=== PATIENT | female | born 1945 | race Caucasian/White ===

== ENCOUNTER 2019-06-26 12:26 | Inpatient (IN) ==
[2019-06-26] MEDS: ASPIRIN PO ONE ×2 (12:52→13:14)
--- NOTE | 2019-06-26 13:08 | EKG Report ---
Test Performed on : 06/26/2019 12:36:56 PM Test Reason : CP Blood Pressure : / mmHG Vent. Rate : 052 BPM Atrial Rate : 052 BPM P-R Int : 154 ms QRS Dur : 086 ms QT Int : 434 ms P-R-T Axes : 024 010 068 degrees QTc Int : 403 ms Sinus bradycardia. Nonspecific T wave abnormality Abnormal ECG When compared with ECG of 08-JUN-2012 14:09, No significant change was found Unconfirmed Result
[2019-06-26] MEDS ORDERED: ASPIRIN PO ONE (13:17)
--- NOTE | 2019-06-26 13:29 | PROVIDER DOCUMENTATION ---
HPI-Chest Pain - General Chief Complaint: Chest Pain Stated Complaint: CP,DIZZINESS,JAW PAIN,NAUSEA Time Seen by Provider: 06/26/19 12:52 Source: patient Allergies/Adverse Reactions: Patient Allergies Allergy/AdvReac Type Severity Reaction Status Date / Time levofloxacin [From Levaquin] Allergy RASH Verified 03/27/16 20:32 Home Medications: Home Medication List Medication Instructions Recorded Confirmed Last Taken Type Nitroglycerin Sl [Nitroglycerin] 0.4 mg SL DIRECTED PRN PRN 06/08/12 03/27/16 Unknown History Aspirin 81 mg PO DAILY 01/16/13 03/27/16 05/11/19 History Tramadol [Ultram] 50 mg PO PRN PRN 01/16/13 03/27/16 07/07/13 07:30 History Atorvastatin Calcium [Lipitor] 80 mg PO HS 03/27/16 03/27/16 05/10/19 History Benazepril HCl 20 mg PO DAILY 03/27/16 03/27/16 05/10/19 History Oxycodone/APAP 10 mg/325 mg 1 tab PO Q4H PRN PRN 03/27/16 03/27/16 Unknown History [Percocet-10] Potassium Chloride 20 meq PO BID 03/27/16 03/27/16 05/11/19 History - History of Present Illness-CP Nature of Presenting Problem: 73yof present to ER with c/o L shoulder/back pain and jaw pain onset this AM. Pt reports she also has had a lot of SOB, diaphoresis, and dizziness worse with movement or standing. States she felt like she was going to pass out this morning. Reports similiar but milder episode last week but resolved. 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 reports seeing him last in February or March and was supposed to go back after 4 months. Pt reports she has had a str ess test at the beginning of the year. Pt reports hx of CABG and stents. Location: reports: central, shoulder, back Chest Pain Radiation: reports: jaw Quality of Pain: reports: pressure, tightness Onset/Duration: this morning Timing: still present Modifying Factors: worse with: movement Associated Symptoms: reports: back pain, diaphoresis, dizziness, nausea, shortness of breath, syncope, vomiting. denies: fever/chills Nitro Today/Relief: 0.4 mg x 1, provided at home, no relief Aspirin Treatment Today: 81 mg x 1, provided at home Prior Chest Pain/Cardiac Workup: reports: stress test (this year) Review of Systems - Adult - REVIEW OF SYSTEMS - ADULT Constitutional: reports: no symptoms reported. denies: chills, fever Eyes: reports: no symptoms reported Ears, Nose, Mouth & Throat: reports: no symptoms reported Cardiovascular: reports: see HPI, chest pain, syncope Respiratory: reports: see HPI, shortness of breath. denies: cough Gastrointestinal: reports: see HPI, nausea, vomiting. denies: abdominal pain Genitourinary: reports: no symptoms reported Musculoskeletal: reports: see HPI, back pain Integumentary: reports: no symptoms reported Neurological: reports: see HPI, dizziness/vertigo, syncope. denies: headache/migraines, numbness, paresthesia, slurred speech Psychiatric: reports: no symptoms reported Endocrine: reports: no symptoms reported Hematologic/Lymphatic: reports: no symptoms reported Allergic/Immunologic: reports: no symptoms reported All Other Systems: Reviewed and Negative Past History - Adult - PAST MEDICAL HISTORY-ADULT Review of Records: reports: Old Records Reviewed, Nursing Assessment Review, Medications Reviewed, Social history reviewed & non-contributory. Major Childhood Illnesses: reports: denies history Cardiovascular: reports: CAD (open heart surgery and cardiac stents), HTN Respiratory: reports: denies history Gastrointestinal: reports: denies history Obstetrical/Gynecological: reports: denies history Genitourinary: reports: denies history Musculoskeletal: reports: denies history Neurological: reports: denies history Endocrine/Immune: reports: denies history Other Conditions: reports: denies history - PRIOR SURGERIES/PROCEDURES Surgical/Procedure History: reports: cardiac stent, hysterectomy, orthopedic (extremity) (right shoulder ), other (open heart; bladder) - PRIOR HOSPITALIZATIONS Prior Hospitalizations: reports: none - IMMUNIZATION STATUS Childhood Immunizations: See Nurse Assessment Flu Vaccine: See Nurse Assessment - FAMILY HISTORY Family History: reviewed, not pertinent Physical Exam-General - PHYSICAL EXAM-ADULT Initial Vital Signs Reviewed: Yes - CONSTITUTIONAL General Appearance: alert, no apparent distress - HEAD, EARS, NOSE, MOUTH & THROAT HENMT: moist mucous membranes - NECK Neck: full range of motion, supple, normal inspection - RESPIRATORY Respiratory: lungs clear, normal breath sounds, no respiratory distress, no accessory muscle use - CARDIOVASCULAR Cardiovascular: no edema, bradycardia - GASTROINTESTINAL (ABDOMEN) Abdominal Exam: normal bowel sounds, non tender, soft - LYMPHATIC Lymphatic: no adenopathy - MUSCULOSKELETAL Back Exam: normal inspection Extremity: normal range of motion, normal gait, normal inspection, no pedal edema, no calf tenderness, normal capillary refill - SKIN Integumentary: normal color, warm/dry. negative: diaphoresis, jaundice - NEUROLOGIC Neurologic: grossly normal - PSYCHIATRIC Psych/Mental Status: normal mood/affect, normal thought content, normal thought process, oriented x 3 - HEART Score HEART Score: History: Moderately Suspicious HEART Score: ECG: Normal HEART Score: Age: > or = 65 Years HEART Score: Risk Factors for Atherosclerotic Disease: 1 or 2 Risk Factors HEART Score: Troponin: < or = Normal Limit Total HEART Score:: 4 Progress - PLAN OF CARE/RESULTS Progress/Plan/Lab Results: Vital Signs - 8 hr 06/26/19 12:35 06/26/19 13:11 06/26/19 13:15 Temperature 97.4 F L Pulse Rate 51 L 59 L 52 L Respiratory Rate 16 16 19 Blood Pressure 107/67 O2 Sat by Pulse Oximetry 95 99 06/26/19 13:30 06/26/19 13:52 06/26/19 14:00 Temperature Pulse Rate 48 L 52 L 46 L Respiratory Rate 16 19 19 Blood Pressure O2 Sat by Pulse Oximetry 97 98 95 06/26/19 14:15 06/26/19 14:16 06/26/19 14:30 Temperature Pulse Rate 46 L 47 L 47 L Respiratory Rate 15 21 14 Blood Pressure 135/72 O2 Sat by Pulse Oximetry 98 97 97 Laboratory Results - last 24 hr 06/26/19 06/26/19 06/26/19 13:22 13:22 13:22 WBC 5.45 RBC 4.62 Hgb 13.9 Hct 43.0 MCV 93.1 MCH 30.1 MCHC 32.3 L RDW Std Deviation 14.9 H Plt Count 193 MPV 13.5 H Immature Gran % (Auto) 0.0 Neut % (Auto) 57.8 Lymph % (Auto) 34.5 [place] % (Auto) 5.5 Eos % (Auto) 1.8 Baso % (Auto) 0.4 Immature Gran # (Auto) 0.00 Neut # (Auto) 3.15 Lymph # (Auto) 1.88 [place] # (Auto) 0.30 Eos # (Auto) 0.10 Baso # (Auto) 0.02 PT INR PTT (Actin FS) D-Dimer, Quantitative Sodium 135 L Potassium 4.7 Chloride 101 Carbon Dioxide 23 L Anion Gap 11 BUN 16 Creatinine 1.0 H Estimated GFR/1.73 m2 55 BUN/Creatinine Ratio 16 Glucose 130 H Calculated Osmolality 273 Calcium 8.6 L Total Bilirubin 0.67 AST 25 ALT 15 Alkaline Phosphatase 94 Creatine Kinase 114 Troponin T < 0.010 Total Protein 7.7 Albumin 4.0 Globulin 3.7 Albumin/Globulin Ratio 1.1 06/26/19 14:22 WBC RBC Hgb Hct MCV MCH MCHC RDW Std Deviation Plt Count MPV Immature Gran % (Auto) Neut % (Auto) Lymph % (Auto) [place] % (Auto) Eos % (Auto) Baso % (Auto) Immature Gran # (Auto) Neut # (Auto) Lymph # (Auto) [place] # (Auto) Eos # (Auto) Baso # (Auto) PT 13.2 INR 0.99 PTT (Actin FS) 26.9 D-Dimer, Quantitative 0.30 Sodium Potassium Chloride Carbon Dioxide Anion Gap BUN Creatinine Estimated GFR/1.73 m2 BUN/Creatinine Ratio Glucose Calculated Osmolality Calcium Total Bilirubin AST ALT Alkaline Phosphatase Creatine Kinase Troponin T Total Protein Albumin Globulin Albumin/Globulin Ratio Orders Category Date Time Status CHEST-2 VIEWS [RAD] Stat Exams 06/26/19 12:52 Completed CBC WITH DIFF [HEME] Stat Lab 06/26/19 13:22 Completed CK PROFILE [SP CHEM] Stat Lab 06/26/19 13:22 Completed COMPREHENSIVE METABOLIC PANEL [CHEM] Stat Lab 06/26/19 13:22 Completed D-DIMER [COAG] Stat Lab 06/26/19 14:22 Completed PROTIME WITH INR [COAG] Stat Lab 06/26/19 14:22 Completed PTT [COAG] Stat Lab 06/26/19 14:22 Completed TROPONIN T Stat Lab 06/26/19 13:22 Completed TROPONIN T Stat Lab 06/26/19 15:04 Ordered Aspirin Med 06/26/19 13:17 Discontinued 243 mg PO NOW ONE Aspirin Med 06/26/19 12:52 Discontinued 325 mg PO NOW ONE EKG [EKG] Stat Ther 06/26/19 12:52 Draft EKG [EKG] Stat Ther 06/26/19 15:04 Ordered Result Diagrams: 06/26/19 13:22 10/07/19 13:22 - XRAY 1 XRAY Study: Chest Impression: See EMR Report (FINDINGS: Stable CABG changes. Stable coronary stent. The lungs are clear. Heart size is normal. No pneumothorax or pleural effusion. IMPRESSION: Negative exam. Electronically signed by Ab Connor 06/26/2019 1:56 PM) - CONSULTS/PCP/HOSPITALIST Notification #1 *Consult/PCP/Hospitalist*: JIMBO Jeffrey hospitalist Time Discussed: 15:04 Consult Disposition: Will see in ED, Admit Departure - Departure Date of Disposition Decision: 06/26/19 Time of Disposition Decision: 15:04 DIAGNOSIS: Chest pain Qualifiers: Chest pain type: unspecified Qualified Code(s): R07.9 - Chest pain, unspecified Disposition: ADMITTED INPATIENT 09 Certified Medical Emergency: Emergent Condition: Stable Referrals and Follow-Ups: Jose Luis Cortez [Primary Care Provider] - - Critical Care Note This patient required my direct & personal management of CC.: No Attestation - Physician/ GIUSEPPE Attestation Patient care was provided by Advanced Practice Provider:: Yes Advanced Practice Provider:: Mary Singh Advanced Practice Provider documentation review:: The Mid-level provider documentation, treatment plan and medical decision making was reviewed by the physician who agrees with all treatment and medical decision making by the MLP. The physician spent face to face time with patient:: No Advanced Practice Provider documentation review:: Supervising physician onsite and consulted in the evaluation and care of this patient. The physician did not have a face to face encounter with the patient.
[2019-06-26 13:42] LABS: BASO# 0.02 X1000 (0.0-0.2); BASO% 0.4 % (0.0-0.8); EOS% 1.8 % (0.0-10.0); HEMOGLOBIN 13.9 g/dL (12.0-16.0); LYMPH# 1.88 X1000 (1.2-3.4); LYMPH% 34.5 % (20.5-51.1); MCH 30.1 PG (27-31); MCHC 32.3 g/dL (33-37); MCV 93.1 FL (81-99); MONO% 5.5 % (1.7-9.3); MPV 13.5 FL (7.4-10.4); NEUT# 3.15 X1000 (1.4-6.5); NEUT% 57.8 % (42.2-75.2); PLT 193 X1000 (130-400); RBC 4.62 XMIL (4.2-5.4); RDW 14.9 % (11.5-14.5); WBC 5.45 X1000 (4.8-10.8)
--- NOTE | 2019-06-26 13:59 | Diag Imaging Result Doc PS360 ---
CHEST-2 VIEWS - 06/26/2019 INDICATION: cp COMPARISON: 12/05/2018 FINDINGS: Stable CABG changes. Stable coronary stent. The lungs are clear. Heart size is normal. No pneumothorax or pleural effusion. IMPRESSION: Negative exam. Electronically signed by Ab Connor 06/26/2019 1:56 PM
--- NOTE | 2019-06-26 14:03 | ED EKG INTERP ---
This chart was entered by Ekaterina Michel Scribe, acting as scribe for Denzel Murphy MD. EKG Interpretation - EKG Time of EKG reading by physician:: 12:41 EKG Read and Signed by:: Denzel Murphy EKG Interpretation (*Must complete 3 of following elements*): Abnormal Rate: 52 Rhythm: sinus bradycardia QRS: normal ST Wave: non-specific ST changes Attestation - Physician/ GIUSEPPE Attestation Patient care was provided by Advanced Practice Provider:: No The physician spent face to face time with patient:: Yes Advanced Practice Provider documentation review:: Supervising physician onsite and consulted in the evaluation and care of this patient. The physician did have a face to face encounter with the patient. This chart was documented by the indicated scribe, (Ekaterina Michel Scribe) and accurately reflects the services I performed and decisions made by Jeffrey dawson Kent A., MD, as attested by the provider's signature.
[2019-06-26 14:18] LABS: ALB/GLOB RATIO 1.1; CALCIUM 8.6 mg/dL (8.8-10.2); POTASSIUM 4.7 mmol/L (3.5-5.1); TOTAL BILIRUBIN 0.67 mg/dL (0.20-1.00); TOTAL PROTEIN 7.7 g/dL (6.3-8.3)
[2019-06-26 14:38] LABS: INR 0.99; PROTIME 13.2 Seconds (11.0-16.0)
[2019-06-26 14:39] LABS: PTT 26.9 Seconds (22.3-41.8)
--- NOTE | 2019-06-26 16:13 | ED EKG INTERP ---
EKG Interpretation - EKG Time of EKG reading by physician:: 16:12 EKG Read and Signed by:: Denzel Murphy EKG Interpretation (*Must complete 3 of following elements*): Abnormal Rate: 47 Rhythm: sinus [place]annon [place]: normal QRS: poor R wave progression ID Interval: normal ST Wave: non-specific ST changes Prior EKG Comparison: unchanged from prior (except slower rate) Attestation - Physician/ GIUSEPPE Attestation Patient care was provided by Advanced Practice Provider:: Yes Advanced Practice Provider documentation review:: The Mid-level provider documentation, treatment plan and medical decision making was reviewed by the physician who agrees with all treatment and medical decision making by the MLP. The physician spent face to face time with patient:: No Advanced Practice Provider documentation review:: Supervising physician onsite and consulted in the evaluation and care of this patient. The physician did not have a face to face encounter with the patient.
--- NOTE | 2019-06-26 16:20 | EKG Report ---
Test Performed on : 06/26/2019 3:51:28 PM Test Reason : CP Blood Pressure : / mmHG Vent. Rate : 047 BPM Atrial Rate : 047 BPM P-R Int : 168 ms QRS Dur : 086 ms QT Int : 418 ms P-R-T Axes : 040 017 080 degrees QTc Int : 369 ms Sinus bradycardia. Nonspecific T wave abnormality Abnormal ECG When compared with ECG of 26-JUN-2019 12:36, (Unconfirmed) No significant change was found Unconfirmed Result
[2019-06-26] MEDS ORDERED: ZOFRAN IV PRN (16:27)
[2019-06-26] MEDS ORDERED: NITROGLYCERIN SL PRN (16:27)
[2019-06-26] MEDS ORDERED: TYLENOL PO PRN (16:27)
[2019-06-26] MEDS ORDERED: LOVENOX SUBQ SCH (16:30)
[2019-06-26] MEDS ORDERED: SODIUM CHLORIDE 0.9% INJ SCH (17:15)
[2019-06-26 17:20] LABS: HEMOGLOBIN A1C 5.6 % (4.8-6.0)
[2019-06-26] MEDS: PEPCID IV SCH (18:53)
[2019-06-26] MEDS ORDERED: FLU VACCINE IM ONE (20:13)
[2019-06-26] MEDS: PRILOSEC PO SCH (20:42)
--- NOTE | 2019-06-26 21:20 | EKG Report ---
Test Performed on : 06/26/2019 7:47:34 PM Test Reason : chest pain Blood Pressure : / mmHG Vent. Rate : 051 BPM Atrial Rate : 101 BPM P-R Int : 182 ms QRS Dur : 096 ms QT Int : 388 ms P-R-T Axes : 048 022 077 degrees QTc Int : 357 ms Sinus bradycardia. with 2nd degree AV block. with 2:1 AV conduction. Nonspecific T wave abnormality Abnormal ECG When compared with ECG of 26-JUN-2019 15:51, (Unconfirmed) Sinus rhythm. is now with 2nd degree AV block. Confirmed by Aniceto SHAVER, Galen Zuniga ([id number]) on 06/27/2019 7:43:06 AM
--- NOTE | 2019-06-26 22:43 | HISTORY AND PHYSICAL ---
CHIEF COMPLAINT: Jaw pain, left shoulder pain, shortness of breath, diaphoresis and dizziness of 6 hours duration. HISTORY OF PRESENT ILLNESS: Ms. Mooney is a 73-year-old lady with past medical history of coronary artery disease status post CABG and stenting around 2004, chronic GERD who presented to the emergency room with chief complaints of left shoulder and jaw pain onset this morning. Associated with that, she had nausea and clear vomiting. She also had shortness of breath and diaphoresis and dizziness. Her symptoms were worse on standing up position and were slightly better on lying down position. She had feelings as if she was going to pass out, so she decided to come to the hospital. Apparently, she had similar episode about 7 days ago, which had resolved. In the emergency room, the patient was found to be hemodynamically stable; however, considering her concerning symptoms, hospitalist team was consulted for further management. The patient states that she had had similar symptoms a few months ago, and she had seen her cook dinner in [place] who had performed a stress test, which was unremarkable and since then she was feeling better. She also states that at that time some medication changes were also made that she is not aware of. At the time of my evaluation, the patient states she is not having any more jaw pain. She is not feeling short of breath. She is not having any chest pain or shortness of breath; however, she is feeling better on lying down, but if she tries to sit up, she may throw up. She has had 1 vomiting so far since in the ER. She denies any headache, blurring of vision. She denies any abdominal pain, any burning micturition or any diarrhea or constipation. REVIEW OF SYSTEMS: Positive for feeling dizzy. Positive for some abdominal discomfort due to vomiting. Negative for palpitation. Negative for syncope. Otherwise, 12 point review of system was largely unremarkable except as mentioned in HPI. PAST MEDICAL HISTORY: 1. History of coronary artery disease status post CABG and stenting. 2. Essential hypertension. 3. Anxiety. 4. Irritable bowel syndrome. 5. Dyslipidemia. 6. Likely obstructive sleep apnea. 7. Esophageal tear leading to GI bleed in 2008 PAST SURGICAL HISTORY: 1. Coronary artery bypass graft in 2004. 2. Episode of GI bleed in 2008 from esophageal tear. 3. Bladder neck surgery. 4. Hysterectomy. 5. Right shoulder surgery. HOME MEDICATIONS: The medication list needs to be reconciled; however, patient states that she at home takes amlodipine, benazepril 5 and 20 mg capsule in the morning time, atorvastatin 80 mg at nighttime, benazepril 10 mg in the morning time, cyclobenzaprine 10 mg every 8 hours, furosemide 20 mg in the morning time, isosorbide mononitrate 30 mg in the morning time, nitroglycerin 1 patch every day every 24 hours, pantoprazole 40 mg in the morning time, potassium 10 mEq b.i.d., ranolazine 500 mg b.i.d., tramadol 50 mg every 4 to 6 hours as needed, cefdinir 300 mg b.i.d., oxycodone/acetaminophen 10/325 mg every 6 hours as needed for pain. MEDICATION ALLERGY: Levofloxacin. PERSONAL HISTORY: The patient denies any history of smoking, alcohol, illicit drug use or intravenous drug use. FAMILY HISTORY: No family history of cancer, heart disease. PHYSICAL EXAMINATION: CURRENT VITALS: Temperature of 97.4 degrees, pulse 47. The patient does say that her heart rate runs low normally. Respiratory rate 21, blood pressure 135/72. She is saturating 97% on room air. GENERAL: Does not appear in acute distress. HEENT: Oral cavity is moist. LUNGS: Air entry bilaterally equal. No wheeze or crackles. HEART: S1, S2 normal. Bradycardic. No murmur, rub, or gallop. ABDOMEN: Soft. Mild epigastric tenderness. No hepatosplenomegaly. EXTREMITIES: She has mild lower extremity edema. NEUROLOGICAL: She is alert and oriented x3. She is able to move all extremities spontaneously. LABORATORY DATA: Suggestive of normal CBC, hemoglobin and platelet count. Normal D-dimer and coagulation profile. She does have mild kidney dysfunction with creatinine of 1. Her troponins are negative x2. IMAGING: Chest x-ray on admission had CABG changes and stable coronary stent without any pneumothorax or pleural effusion. Electrocardiogram on admission had sinus bradycardia. ASSESSMENT: 1. Atypical chest pain, jaw pain and left shoulder pain with diaphoresis. 2. History of coronary artery disease requiring CABG in 2004. 3. Essential hypertension. 4. Hyperlipidemia. 5. Kidney dysfunction. PLAN: She does have known history of coronary artery disease requiring bypass surgery, though she does mention that her nuclear medicine stress test was unremarkable in January or March this year; however, I do not have details of it. She also states that after that some medication changes were made. Considering that, it needs to be ruled out that her symptoms are not of cardiac origin, so I will monitor patient in telemetry unit. We will get serial cardiac enzymes. We will resume her home medications when reconciled and consult Cardiology team. Other differential could also include GERD causing gastric reflux and similar symptoms. Orthostatic hypotension related to antihypertensive medication use is also possible. She does have a low heart rate so symptomatic bradycardia could also be a consideration. There is mild abdominal tenderness in epigastric region without any right upper quadrant tenderness and liver function tests are normal so gallbladder disease is less likely. In brief, I will monitor patient inside the hospital. Plan of care discussed with the patient and her family at bedside. Their questions have been answered. cc: Nba Chamorro MD MTDD
[2019-06-27] MEDS: PEPCID IV SCH (05:46)
[2019-06-27 07:21] LABS: BASO# 0.02 X1000 (0.0-0.2); BASO% 0.3 % (0.0-0.8); EOS# 0.14 X1000 (0.0-0.7); EOS% 2.4 % (0.0-10.0); HEMOGLOBIN 13.6 g/dL (12.0-16.0); LYMPH# 2.51 X1000 (1.2-3.4); LYMPH% 42.2 % (20.5-51.1); MCH 30.8 PG (27-31); MCHC 33.2 g/dL (33-37); MCV 92.8 FL (81-99); MONO% 6.7 % (1.7-9.3); MPV 13.4 FL (7.4-10.4); NEUT# 2.88 X1000 (1.4-6.5); NEUT% 48.4 % (42.2-75.2); PLT 192 X1000 (130-400); RBC 4.42 XMIL (4.2-5.4); RDW 15.1 % (11.5-14.5); WBC 5.95 X1000 (4.8-10.8)
[2019-06-27 07:42] LABS: ALB/GLOB RATIO 0.9; ALBUMIN 3.4 g/dL (3.5-5.0); CALCIUM 8.4 mg/dL (8.8-10.2); POTASSIUM 3.8 mmol/L (3.5-5.1); TOTAL BILIRUBIN 0.57 mg/dL (0.20-1.00); TOTAL PROTEIN 7.1 g/dL (6.3-8.3)
--- NOTE | 2019-06-27 08:33 | ECHO REPORT ---
ORDER DATE: 06/26/2019 MEASUREMENTS: Septal thickness 1.2, left ventricular internal diameter in diastole 3.5, posterior wall thickness 1.2, left ventricular internal diameter in systole 2.2, left atrium 4.7, aortic root 2.5. SUMMARY: 1. Fair quality study. 2. Aortic valve is trileaflet and opens normally on 2-dimensional images. Peak gradient across the aortic valve is less than 10 mmHg. Mitral, tricuspid, and pulmonic valves are without evidence of structural abnormality with trace mitral regurgitation and mild tricuspid regurgitation. The estimated systolic PA pressure by Doppler is 30 mmHg. The aortic root is normal in size. 3. Normal left ventricular chamber size with mild concentric left hypertrophy is demonstrated. Estimated left ejection fraction is approximately 65%. No regional wall motion abnormalities are evident. Left atrium is mildly enlarged. The right atrium and right ventricle are normal in size with normal right ventricular systolic function. 4. No pericardial effusion. 5. Appearance of the inferior vena cava suggests normal central venous pressure. CONCLUSIONS: 1. Mild tricuspid regurgitation. 2. Mild concentric left ventricular hypertrophy with an estimated left ventricular ejection fraction of approximately 65%. 3. Mild left atrial enlargement. cc: MD Rachele Hickman CRNP
[2019-06-27] MEDS: PRILOSEC PO SCH (08:45)
[2019-06-27] MEDS ORDERED: ASPIRIN EC PO SCH (09:00)
[2019-06-27] MEDS ORDERED: LEXISCAN ONE (10:14)
--- NOTE | 2019-06-27 14:41 | Diag Imaging Result Document ---
PROCEDURE NAME: MYOCARDIAL PERF SCAN, STR/REST - 06/27/2019 INDICATION: Chest pain. PROCEDURES PERFORMED: 1. Lexiscan stress. 2. One-day stress/rest myocardial perfusion imaging. FINDINGS: LEXISCAN STRESS RESULTS: 1. Baseline EKG shows sinus rhythm. 2. Lexiscan stress did not demonstrate any clear evidence of ischemic-related electrocardiogram changes or significant arrhythmias. PERFUSION IMAGING RESULTS: 1. No evidence of abnormal extracardiac uptake. 2. TID ratio is 1.01. 3. Perfusion imaging demonstrates what appears to be normal homogeneous uptake of radiotracer throughout the myocardial segments. I do not see any evidence of stress-related defects. 4. Normal ejection fraction of 73%. The end-diastolic volume is 86, end-systolic volume is 23. Normal wall motion. cc: MD Rachele Jose CRNP
--- NOTE | 2019-06-27 15:04 | CONSULTATION ---
DATE OF CONSULTATION: 06/27/2019 IMPRESSION: 1. Episode of chest discomfort with associated nausea and vomiting features mixed possible underlying atherosclerotic coronary disease. Despite extended duration of symptoms, cardiac enzymes were negative. Lexiscan myocardial perfusion study performed today negative for evidence of inducible myocardial ischemia and indicated normal left ventricular ejection fraction. Suspect symptoms probably noncardiac and possibly upper gastrointestinal in etiology. 2. Atherosclerotic coronary disease with previous coronary bypass grafting and previous coronary angioplasty/stenting. 3. Hypertension. 4. Hyperlipidemia. 5. Gastroesophageal reflux disease. RECOMMENDATIONS: 1. Continue and augment medical therapy for atherosclerotic coronary disease. 2. Empirically aggressively treat gastroesophageal reflux. The patient would probably benefit from outpatient gastrointestinal consultation regarding possible upper gastrointestinal source of her chest symptoms. 3. Reasonable for patient to be discharged soon to follow up with her newly established regular beam dyer recessed vat, Dr. Alonzo. HISTORY: This 73-year-old white female with past history of previous coronary bypass grafting and coronary angioplasty/stenting more than 10 years ago, hypertension, hyperlipidemia, gastroesophageal reflux disease was admitted for further chest pain. She describes having nausea and vomiting, as well as some postural lightheadedness. She had some chest pressure and associated jaw discomfort. Symptoms were rather persistent throughout the day without complete interruption. She had some associated jaw discomfort and some discomfort in the left posterior shoulder. Symptoms were rather persistent throughout the day, and she ultimately came to the emergency room. She was admitted for further workup. Serial cardiac enzymes have been negative. She has already undergone Lexiscan sestamibi study which shows no evidence of inducible myocardial ischemia and normal left ventricular systolic function. PAST MEDICAL HISTORY: 1. Atherosclerotic coronary disease with previous coronary bypass grafting and coronary/stenting more than 10 years ago. 2. Hypertension. 3. Gastroesophageal reflux disease. 4. Dyslipidemia. 5. Irritable bowel syndrome. 6. Gastroesophageal reflux disease. PAST SURGICAL HISTORY: Includes coronary bypass surgery in 2004, Vee-Quan tear 2008, bladder neck surgery, hysterectomy, and unspecified right shoulder surgery. ALLERGIES: She is allergic or intolerant to levofloxacin. MEDICATIONS PRIOR TO ADMISSION: As listed. SOCIAL HISTORY: She does not smoke nor use alcohol. FAMILY HISTORY: Positive for coronary disease. REVIEW OF SYSTEMS: Pulmonary: Noncontributory. Gastrointestinal: Noncontributory beyond history of present illness. Constitutional: Noncontributory beyond history of present illness. The remainder of review of systems negative/noncontributory beyond history of present illness with 14 total systems reviewed. PHYSICAL EXAMINATION: General: This is a pleasant, older white female in no distress. Vital signs: Blood pressure 130/69, heart rate 55, oxygen saturation 97%. HEENT exam: Extraocular movements appear intact. Mucous membranes moist. Neck: Supple without jugular venous distention. There are no carotid bruits. Chest: Clear to auscultation bilaterally. Cardiac Exam: Reveals a regular rate and rhythm without appreciable murmur or gallop. Abdomen: Soft. Bowel sounds are normal. Extremities: Without edema. Neurologic: Exam reveals her to be alert and fully oriented. Speech is fluent. She moves all 4 extremities equally well. Skin: Warm and dry. Psychiatric: Exam reveals her mood to be appropriate. X-RAYS: Twelve lead EKG demonstrates sinus bradycardia and nonspecific T-wave abnormality. LABORATORY DATA: Includes a white blood cell count 5.5, hematocrit 41.0, hemoglobin 13.6, platelet count 192. Sodium 139, potassium 3.8, chloride 105, carbon dioxide 23. BUN 14, creatinine 1.0, glucose 105. Initial troponin-T less than 0.01. Followup troponin-T less than 0.01 and less than 0.01. Initial CPK 114 with followup CPK 109 and 106, triglycerides 123, total cholesterol 143, LDL cholesterol 83 and HDL cholesterol 50. IMAGING STUDIES: Lexiscan sestamibi study is reviewed and reveals no evidence of inducible myocardial ischemia. It also indicates normal left ventricular ejection fraction. Echocardiography indicates mild concentric left hypertrophy and normal left ventricular ejection fraction without wall motion abnormality. cc: Claudio Bey MD
[2019-06-27 15:41] VITALS: BP 137/72
[2019-06-28] MEDS ORDERED: PROTONIX PO SCH (07:00)
[2019-06-28] MEDS ORDERED: NORVASC PO SCH (09:00)
[2019-06-28] MEDS ORDERED: IMDUR PO SCH (09:00)
--- NOTE | 2019-06-28 09:50 | DISCHARGE SUMMARY ---
ADMISSION DATE: 06/26/2019 DISCHARGE DATE: 06/27/2019 DISCHARGE DISPOSITION: Home. DISCHARGE CONDITION: Hemodynamically stable. She does not have positive orthostatic vital signs. She does not have any more nausea, vomiting. She has been able to walk in the hallway without any difficulty. DISCHARGE DIAGNOSES: 1. Atypical chest pain. 2. Jaw pain, left shoulder pain with nausea and vomiting. 3. Essential hypertension. 4. Kidney dysfunction. OTHER DIAGNOSES: 1. History of coronary artery disease status post coronary artery bypass grafting and stenting in 2004. 2. History of anxiety. 3. History of irritable bowel syndrome. 4. History of dyslipidemia. 5. Likely history of obstructive sleep apnea. 6. Esophageal tear leading to gastrointestinal bleed in 2008. CONSULTATION DURING HOSPITAL ADMISSION: Claim Administrator, Dr. Bey. DISCHARGE MEDICATIONS: Atorvastatin 80 mg at nighttime, amlodipine and benazepril 5 and 20 mg tablet, 1 tablet in the morning time. Cyclobenzaprine 10 mg every 8 hours as needed for muscle spasm, furosemide 20 mg in the morning time, isosorbide mononitrate 30 mg in the morning time, oxycodone acetaminophen 10/325 mg 1 tablet every 6 hours as needed for pain, pantoprazole 40 mg in the morning time, potassium chloride 10 mEq b.i.d., tramadol 50 mg every 4 to 6 hours, famotidine 20 mg at nighttime, 30 tablets have been prescribed, aspirin 81 mg daily 30 tablets have been prescribed. She was also listed to be taking cefdinir 300 mg b.i.d. and she was advised to have a discussion with the regular doctor about indication of this, which she could not remember. VITAL SIGNS: Current vitals, temperature 97.8 degrees, pulse 58, respiratory rate 20, blood pressure 137/72, saturating 97% on room air. PHYSICAL EXAMINATION: General: Does not appear in acute distress. Oral cavity is moist. Air entry bilaterally equal. No wheeze or crackles. S1 and S2 are normal. No murmur or gallop. Abdomen: Soft, nontender. No lower extremity edema. She is alert and oriented x3. SIGNIFICANT LABS: During hospital admission and discharge, WBC 5.9, hemoglobin 13.6, platelets 192,000. Potassium 3.8, BUN 14, creatinine 1. Her troponins were less than 0.010 times 3. Microbiology, no positive data. IMAGING: Chest x-ray on admission did not have any acute cardiopulmonary process. Echocardiogram had mild tricuspid regurgitation, mild concentric left ventricular hypertrophy with estimated ejection fraction of 65%, mild left atrial enlargement. Myocardial perfusion scan nuclear medicine, Lexiscan stress did not demonstrate any clear evidence of ischemic related electrocardiogram changes or significant arrhythmia. Perfusion imaging demonstrated normal homogeneous uptake of radiotracer throughout the myocardial segment without evidence of stress related defect with normal ejection fraction of 73%. EKG on admission had sinus bradycardia. HOSPITAL COURSE SUMMARY: Ms. Mooney is a [id number] lady with past medical history of coronary artery disease requiring CABG and stenting in 2004, chronic GERD, who would occasionally have nausea because of GERD, came in with chief complaints of left shoulder, jaw pain onset since 6 hours' duration associated with nausea and clear looking vomiting. She also had shortness of breath, diaphoresis and dizziness. Her symptoms were worse on standing up and physical exertion and were getting better lying down position. She had feelings as if she was going to pass out, so she decided to come to the hospital. Apparently, she had similar episode about 7 days prior to presentation, which had resolved without any intervention. In the emergency room she was found to be hemodynamically stable. However, considering her concerning symptoms, hospitalist team was consulted for further management. The patient also had a stress test a few months ago in 2019 which was unremarkable in [place]. However, considering her recurrent symptoms, she was admitted. She was started on most of her home medications and underwent nuclear medicine stress test the next morning which did not have any EKG or nuclear medicine evidence of ischemia. Cardiology team was consulted. The patient was recently started on ranolazine by her outpatient mulcher operator, which she was not tolerating and it was discontinued. Otherwise, most of her other home medications were continued. It was thought the patient's symptoms were likely GI in origin and possibility of these symptoms originating from esophagus, so it was decided to have a GI referral outpatient and a nighttime acid suppressant was also added to her regimen. She was started on aspirin. She was extensively counseled about nature of her illness and the need for close GI and outpatient Cardiology followup. She wanted to establish care with Dr. Alonzo as well. TIME SPENT: More than 30 minutes was spent discharging this patient. All of her questions were answered. cc: MD ISAAC Santoro
== END 2019-06-27 18:08 | disposition home or self-care (01) | DRG 313 ==
LOC: ED 12:26 → 3N 16:45
PROVIDERS: ATTEND Internal Medicine